=== PATIENT | female | born 1960 | race Caucasian/White ===

== ENCOUNTER 2021-05-31 11:50 | Day surgery (SDC) | payer BC ==
[~2021-05-31] VITALS: Ht 162.6 cm; Wt 71.3 kg
[2021-05-31] MEDS ORDERED: ALLEGRA ALLERG180 MG PO (12:46)
[2021-05-31] MEDS ORDERED: ALPR.5 (12:46)
[2021-05-31] MEDS ORDERED: HYDHCL25 PO (12:47)
[2021-05-31] MEDS ORDERED: META800 PO (12:47)
[2021-05-31] MEDS ORDERED: MOME220I INH (12:48)
[2021-05-31] MEDS ORDERED: PSEUDOEPHEDRINE30 M1 (12:48)
[2021-05-31] MEDS ORDERED: VENL37.5ER PO (12:49)
--- NOTE | 2021-05-31 13:06 | NUR ---
05/31/21 1306 Judit Ambrose History, Chart, Medications and Allergies reviewed before start of procedure. Patient confirms NPO status and agrees with scheduled surgery. 3-LEAD EKG REVIEWED WITH PHYSICIAN PRIOR TO START OF PROCEDURE. MONITOR INTACT WITH CONTINUOUS PULSE OXIMETRY AND INTERMITTENT BP. PATIENT DETERMINED TO BE ASA APPROPRIATE FOR PROPOFOL SEDATION PRIOR TO START OF PROCEDURE BY DR. ROSALES
--- NOTE | 2021-05-31 13:57 | NUR ---
Patient up to Ambulate independently. Gait steady. Discharge instructions reviewed with patient. Patient verbalizes understanding. Copy given to patient to take home. Patient States Post-Procedure ride home has been arranged. Discharged via wheelchair to private car for ride home.
== END 2021-05-31 13:57 | disposition home or self-care (01) ==
LOC: ORSCMMR 11:50 → ORSCSDS 13:00 → ORSCMMR 13:00 → ORD 13:00 → ORSCMMR 13:57
PROVIDERS: Surgery
PROC: 0DJD8ZZ Inspection of Lower Intestinal Tract, Via Natural or Artificial Opening Endoscopic (ICD-10-PCS; principal; 2021-05-31 13:00)
DX: Z12.11 Encounter for screening for malignant neoplasm of colon (principal); K21.9 Gastro-esophageal reflux disease without esophagitis; F41.8 Other specified anxiety disorders; Z79.899 Other long term (current) drug therapy
CPT/HCPCS: J2704; J7120